=== PATIENT | male | born 1990 | race African-American/Black ===

== ENCOUNTER 2017-10-17 10:03 | Emergency (ER) | payer SELFPAY ==
[2017-10-17 10:13] VITALS: BP 125/68
[2017-10-17] MEDS ORDERED: LORATADINE 10 MG TABLET PO ONE (10:46)
[2017-10-17] MEDS ORDERED: GUAIFENESIN 600 MG TABLET.SA PO ONE (10:46)
[2017-10-17] MEDS ORDERED: PSEUDOEPHEDRINE HCL 30 MG TABLET PO ONE (10:46)
[2017-10-17] MEDS ORDERED: DEXAMETHASONE 4 MG TABLET PO ONE (10:46)
[2017-10-17] MEDS ORDERED: IBUPROFEN 800 MG TABLET PO ONE (10:47)
--- NOTE | 2017-10-17 10:49 | ER Document Report ---
HPI - HPI Patient complains to provider of: Cough cold congestion sore throat painful to swallow Onset: Other - 2-3 days Onset/Duration: Gradual Quality of pain: Achy Severity: Moderate Pain Level: 3 Associated Symptoms: Body/muscle aches, Chills, Rhinnorhea, Sinus pain/drainage , Sore throat Exacerbated by: Denies Relieved by: Denies Similar symptoms previously: Yes Recently seen / treated by doctor: No - ROS ROS below otherwise negative: Yes - CONSTITUTIONAL Constitutional: REPORTS: Chills - EENT EENT: REPORTS: Sore Throat, Nasal Drainage-Purulent - NEURO Neurology: REPORTS: Headache - CARDIOVASCULAR Cardiovascular: DENIES: Chest pain - RESPIRATORY Respiratory: REPORTS: Coughing - GASTROINTESTINAL Gastrointestinal: DENIES: Abdominal Pain, Nausea, Patient vomiting, Diarrhea, Constipation, Black / Bloody Stools - URINARY Urinary: DENIES: Dysuria, Urgency, Frequency - MUSCULOSKELETAL Musculoskeletal: DENIES: Extremity pain - Body aches, Back Pain, Neck Pain, Swelling - DERM Skin Color: Normal Skin Problems: None Past Medical History - General Information source: Patient - Social History Smoking Status: Never Smoker Cigarette use (# per day): No Chew tobacco use (# tins/day): No Smoking Education Provided: No Frequency of alcohol use: None Drug Abuse: None Occupation: [employer] Lives with: Parents Family History: Reviewed & Not Pertinent Patient has suicidal ideation: No Patient has homicidal ideation: No - Past Medical History Cardiac Medical History: Reports: None Pulmonary Medical History: Reports: None EENT Medical History: Reports: None Neurological Medical History: Reports: None Endocrine Medical History: Reports: None Renal/ Medical History: Reports: None Malignancy Medical History: Reports None GI Medical History: Reports: None Musculoskeletal Medical History: Reports None Skin Medical History: Reports None Psychiatric Medical History: Reports: None Traumatic Medical History: Reports: None Infectious Medical History: Reports: None Surgical Hx: Negative - Immunizations Immunizations up to date: Yes Hx Diphtheria, Pertussis, Tetanus Vaccination: Yes Vertical Provider Document - CONSTITUTIONAL Agree With Documented VS: Yes Exam Limitations: No Limitations General Appearance: WD/WN, No Apparent Distress - INFECTION CONTROL TRAVEL OUTSIDE OF THE [place] IN LAST 30 DAYS: No - HEENT HEENT: Atraumatic, Normocephalic, PERRLA. negative: Normal ENT Exam Notes: Erythematous swollen nasal turbinates, with cobblestone pattern to the oropharynx, tonsil stones present, with sore throat. Patient is afebrile lungs clear to auscultation - NECK Neck: Normal Inspection, Supple - RESPIRATORY Respiratory: Breath Sounds Normal, No Respiratory Distress, Chest Non-Tender - CARDIOVASCULAR Cardiovascular: Regular Rate, Regular Rhythm, No Murmur - GI/ABDOMEN Gastrointestinal: Abdomen Soft, Abdomen Non-Tender, No Organomegaly, Normal Bowel Sounds - MUSCULOSKELETAL/EXTREMETIES Musculoskeletal/Extremeties: MAEW, FROM, Non-Tender - NEURO Level of Consciousness: Awake, Alert, Appropriate Motor/Sensory: No Motor Deficit, No Sensory Deficit, No Pronator Drift Deep Tendon Reflexes: 2+ - DERM Integumentary: Warm, Dry, No Rash Course - Vital Signs Vital signs: Temp Pulse Resp BP Pulse Ox 98.8 F 92 20 125/68 100 10/17/17 10:12 10/17/17 10:12 10/17/17 10:12 10/17/17 10:12 10/17/17 10:12 Discharge - Discharge Clinical Impression: Strep pharyngitis URI (upper respiratory infection) Qualifiers: URI type: unspecified URI Qualified Code(s): J06.9 - Acute upper respiratory infection, unspecified Condition: Stable Disposition: HOME, SELF-CARE Instructions: Family Physicians / Practices Additional Instructions: UPPER RESPIRATORY ILLNESS: You have a viral infection of the respiratory passages -- a "cold." This common infection causes nasal congestion, drainage, and often sore throat and cough. It is highly contagious. The disease usually lasts about 10 to 14 days. There is no "cure" for the viral infection -- it must run its course. If there is a complication, such as bacterial infection in the nose, sinuses, middle ear, or bronchial tubes, antibiotics may be required. The antibiotics won't affect the virus. Drink plenty of fluids. A humidifier may help. An expectorant medication or decongestant may make you more comfortable. Use acetaminophen or ibuprofen for fever or aches. See the doctor if fever persists over two days, if there is any significant worsening of your symptoms, or if you simply fail to improve as expected. STREP THROAT: Your sore throat is due to the streptococcus germ (strep throat). Strep throat usually makes you feel quite ill with fever and aches, headache, swollen sore throat, and tender bumps under the angles of the jaw. Strep throat requires antibiotic treatment. Although the sore throat may go away by itself, complications such as rheumatic fever, kidney disease, or throat abscess can occur. We usually prescribe antibiotics by mouth. Be sure to take the medicine until it's gone. If you stop early, the strep may come back. If you are vomiting, are severely ill, or can't remember to take pills, we can give you an antibiotic shot. Take acetaminophen or ibuprofen for pain and fever. Sip frequent clear liquids, or use popsicles or ice chips. Anesthetic sprays or lozenges may help. Make sure the air in the room is not too dry. Avoid using decongestants or antihistamines. Call the doctor if there is no improvement in three days, or if you have difficulty breathing, increasing throat pain, high fever, rash, or frequent vomiting. Penicillins The antibiotic you have received is a member of the penicillin family. This is a very useful class of antibiotics. The particular type of antibiotic chosen for you was determined by the nature of your problem. Penicillins are absorbed best when taken on an empty stomach, and should be taken either a half hour before or two hours after a meal. Some newer medicines of the penicillin class are better taken with food -- if this is the case, the pharmacist will label the medicine to alert you. Penicillins usually have no side effects. However, allergy to penicillins is common. If you have had an allergic reaction to any drug of the penicillin family, you should never take any other penicillin. Notify your doctor at once if you develop hives, itching, swelling, faintness, or shortness of breath. Less serious side effects can include nausea or diarrhea. STEROID MEDICATION: You have been given a medicine of the cortisone/steroid class. This medication is used to control inflammation or allergy. It is usually only given for a short period of time, until the acute process subsides. There are usually no side effects from short-term use of cortisone-like medications. Some persons feel an increased sense of well-being and are not sleepy at bedtime. Long-term use of cortisone medications is best avoided, unless required for a severe condition. If your condition does not remit, or relapses after the course of corticosteroid medication, you should consult your physician. DECONGESTANT MEDICATION: A decongestant medicine has been prescribed. Often this medicine is combined in the same tablet with an antihistamine or expectorant. This type of medicine is helpful in treating a bad cold or sinus condition, as well as in treatment of the nasal congestion of hay fever. It is not of much benefit for lung infections. Decongestant medicines are related to stimulants. They can cause an increase in blood pressure and heart rate. Persons with heart disease and high blood pressure should not take decongestants without discussing this with the physician. If you develop palpitations, chest pain, headache, or tremors, stop the medicine and consult your physician. COUGH-SUPPRESSANT & EXPECTORANT MEDICATION: You are to use a cough medication as needed for relief of symptoms. This medicine is a combination of an expectorant (to make the mucous thinner and more easily "coughed up") and a cough suppressant (to reduce the frequency of coughing). The cough-suppressant medicine is related to narcotics. You may experience mild nausea and sleepiness. Some patients who are very sensitive to narcotics may have stomach pain from this medicine. Taking the medicine with food reduces these side effects. Do not drive or work with machinery until you know how this medicine affects you. The expectorant should have no side effects. Iodine-containing expectorants (such as organidin) should not be taken by persons with active thyroid disease unless approved by your doctor. Call the doctor if you develop shortness of breath, hives, rash, itching, lightheadedness, or severe nausea and vomiting. Change your toothbrush daily and throw away the old toothbrush each day for the next 3 days this will reduce the spread of the strap and you do not want to reinfect herself. FOLLOW-UP CARE: If you have been referred to a physician for follow-up care, call the physician s office for an appointment as you were instructed or within the next two days. If you experience worsening or a significant change in your symptoms, notify the physician immediately or return to the Emergency Department at any time for re-evaluation. Forms: Return to Work Referrals: LOCALMD,NO [Primary Care Provider] - Follow up as needed
[2017-10-17] MEDS ORDERED: PENICILLIN G BENZATHINE 1.2 MILLION UNIT/2 ML DISP.SYRIN IM ONE (11:11)
== END 2017-10-17 11:23 | disposition home or self-care (01) ==
LOC: ER 10:03
DX: J02.0 Streptococcal pharyngitis (principal); R05 Cough; M79.1 Myalgia; J34.89 Other specified disorders of nose and nasal sinuses
CPT/HCPCS: 99283; 96372; 87880; J0561

== ENCOUNTER 2017-12-15 15:21 | Emergency (ER) | payer SELFPAY ==
[2017-12-15] MEDS ORDERED: CLINDAMYCIN 900 MG/D5W RTU 900 MG/50 ML RTUPB IV ONE (16:14)
[2017-12-15] MEDS ORDERED: MAG HYDROX/AL HYDROX/SIMETH SUSP 30 ML UDCUP PO ONE (16:15)
[2017-12-15] MEDS ORDERED: DEXAMETHASONE SOD PHOS INJ 10 MG/1 ML VIAL IV ONE (16:15)
--- NOTE | 2017-12-15 16:16 | ER Document Report ---
ED Oral Problem - General Chief Complaint: Mouth Injury Stated Complaint: TONGUE PAIN Time Seen by Provider: 12/15/17 16:12 Mode of Arrival: Ambulatory Information source: Patient Notes: Patient is a 27-year-old male comes emergency room complaining of his tongue swelling. Patient is having difficult time speaking because he is tongue is slightly swollen. Patient states that about a week ago he woke up with his tongue hurting and noticed a lesion on the left side of the tongue. It is gotten slightly bigger over the course of the time and he cannot stand the discomfort anymore. He denies known injury is not sure if he bit it in his sleep or how it started. He is not having any oral airway problems he is swallowing okay but it is hard for him to talk. He denies any other medical problems TRAVEL OUTSIDE OF THE [place] IN LAST 30 DAYS: No - HPI Patient complains to provider of: Other - Swollen tongue Onset: Last week Quality of pain: Throbbing, Other - A fullness Severity: Moderate Pain Level: 3 Associated symptoms: Difficulty speaking, Tongue swelling Worsened by: Other - Talking to movement of the tongue Relieved by: Nothing Similar symptoms previously: No Recently seen / treated by doctor/dentist: No - Related Data Allergies/Adverse Reactions: No Known Allergies Allergy (Verified 12/15/17 15:22) Past Medical History - General Information source: Patient - Social History Smoking Status: Never Smoker Cigarette use (# per day): No Chew tobacco use (# tins/day): No Smoking Education Provided: No Frequency of alcohol use: None Drug Abuse: None Family History: Reviewed & Not Pertinent Patient has suicidal ideation: No Patient has homicidal ideation: No Renal/ Medical History: Denies: Hx Peritoneal Dialysis - Immunizations Immunizations up to date: Yes Hx Diphtheria, Pertussis, Tetanus Vaccination: Yes Review of Systems - Review of Systems Constitutional: No symptoms reported EENT: Other - Swollen tongue Cardiovascular: No symptoms reported Respiratory: No symptoms reported Gastrointestinal: No symptoms reported Genitourinary: No symptoms reported Male Genitourinary: No symptoms reported Musculoskeletal: No symptoms reported Skin: No symptoms reported Hematologic/Lymphatic: No symptoms reported Neurological/Psychological: No symptoms reported -: Yes All other systems reviewed and negative Physical Exam - Vital signs Vitals: Temp Pulse Resp BP Pulse Ox 100.0 F 107 H 16 134/86 H 99 12/15/17 15:29 12/15/17 15:29 12/15/17 15:29 12/15/17 15:29 12/15/17 15:29 Interpretation: Hypertensive, Tachycardic - General General appearance: Alert Notes: She is a well-nourished well-developed 27-year-old male who is in no apparent distress but does appear uncomfortable with the situation. - HEENT Head: Normocephalic, Atraumatic, Other - Examination of patient's face shows no asymmetry. There is no signs of overt external swelling around the lips cheeks mandible. Eyes: Normal Conjunctiva: Normal Nasal: Normal Mouth/Lips: Normal Mucous membranes: Normal Pharynx: Other - Examination of patient's oral cavity shows that when we say swollen tongue it is not like an angioedema presentation. The left side of his tongue has a lesion that is approximately a centimeter in diameter and it has a firm base under it which is about a centimeter and a half. It is on the lateral side left side and it is irritated the area. That area one by one lesion makes his tongue feel more swollen than it is. There is no sign of obstruction of his airway and none of his swallowing mechanism. There is I do not believe any chance of the tongue becoming a instruction. The lesion itself looks like it is infected. Got an erythematous base to it and there is no fluctuance so I do not believe there is an abscess underneath. I believe it is inflamed tissue. I am guessing that he either bit the area and it healed over causing a formation of a small abscess which is now turned into a chronic abscess with a firm base. Or it was At Aphthcanus sore that became infected giving the same result.. No: Blood in hypopharynx, Erythema, Exudate, Peritonsillar abscess, Post nasal drainage, Retropharyngeal abscess, Tonsillar hypertrophy, Uvular edema, Potential airway comprom. Neck: Normal, Supple. No: Anterior cervical chain, Posterior cervical chain, Brudzinski, Carotid bruit, Kernig's, Lymphadenopathy, Meningismus, Neck mass, Shotty nodes, Subcutaneous emphysema, Thyroid nodule - Respiratory Respiratory status: No respiratory distress Chest status: Nontender Breath sounds: Normal. No: Rales, Rhonchi, Stridor, Wheezing Chest palpation: Normal - Cardiovascular Rhythm: Tachycardia Heart sounds: Normal auscultation Murmur: No - Neurological Neuro grossly intact: Yes Cognition: Normal Orientation: AAOx4 [place] Coma Scale Eye Opening: Spontaneous [place] Coma Scale Verbal: Oriented [place] Coma Scale Motor: Obeys Commands Nay Coma Scale Total: 15 Speech: Normal Course - Re-evaluation Re-evalutation: 12/15/17 17:54 I have given patient clindamycin 900 IV, I have given him 10 of Decadron, and I gave a dose of Magic mouthwash. Patient stated the Magic mouthwash did nothing. The area itself has not changed during his stay here. He still in somewhat discomfort for talking. Patient has had this going on for a week and I cannot fix it and 2 hours. I have informed him that I am putting him on steroids to try to reduce the inflammation and antibiotics to help with the infection. Patient's white count was normal his lactic acid was normal so I believe her kitchen and early. I am put him on clindamycin for the broad- spectrum coverage and I am going to leave him on a steroid taper for a few days. He will be discharged home. I have asked him to come back in 24 hours for a reevaluation. I really would like a 48 in order to get full coverage there so he will make that determination as the day comes to and and tomorrow. I have informed him I will be here through tomorrow night and I will be back on Sunday and Sunday. - Vital Signs Vital signs: Temp Pulse Resp BP Pulse Ox 100.0 F 107 H 16 134/86 H 99 12/15/17 15:29 12/15/17 15:29 12/15/17 15:29 12/15/17 15:29 12/15/17 15:29 - Laboratory Result Diagrams: 12/15/17 16:40 12/15/17 16:40 Laboratory results interpreted by me: 12/15/17 12/15/17 16:40 16:40 Seg Neutrophils % 80.8 H Lymphocytes % 11.6 L Direct Bilirubin 0.5 H Alkaline Phosphatase 131 H Total Protein 8.6 H Discharge - Discharge Clinical Impression: Cellulitis of tongue, Tongue infection Condition: Stable Disposition: HOME, SELF-CARE Instructions: Cellulitis ([facility]) Additional Instructions: Home and when she to use warm salt water swishes. Do this at least 3 or 4 times a day for the next 48 hours. Take the medication as directed. Continue with a soft diet as to what you can handle yourse As I have indicated this can be turned around in a couple of hours. Is going to take time for the antibiotics to work in time for the steroid to work. Highly suggest suggested reevaluation in 24-48 hours. For sure if it is getting worse in 24 hours or sooner and if it is getting better than 48 hours to take a look at it. My name is Serafin Rodgers physician assistant professor of spanish in the ER here. I work the 2 until 2 AM shift through tomorrow night I am off Sunday and back Sunday. It would be easier if you need to come back if you ask for me on those time periods since I know your story or if you like someone else that is no problem either. But I want to take another look at this to see how you are progressing. I am also writing you for some pain medication so you can rest a little bit. But the warm salt water swishes will be helpful. Prescriptions: Clindamycin HCl 300 mg PO QID #40 capsule Hydrocodone/Acetaminophen [Hydrocodon-Acetamin 7.5-325/15] 10 ml PO Q6H PRN # 120 ml PRN Reason: Prednisone [Sterapred Ds] 10 mg PO ASDIR PRN 6 Days #1 tab.ds.pk PRN Reason: Forms: Elevated Blood Pressure, Return to Work
[2017-12-15 16:58] LABS: ABSOLUTE LYMPHOCYTES (AUTO) 0.9 10^3/uL (0.5-4.7); ABSOLUTE MONOCYTES (AUTO) 0.6 10^3/uL (0.1-1.4); ABSOLUTE NEUT (AUTO) 6.5 10^3/uL (1.7-8.2); BASOPHILS % (AUTO) 0.4 % (0-2); EOSINOPHILS % (AUTO) 0.3 % (0-6); HEMATOCRIT 44.5 % (37.9-51.0); HEMOGLOBIN 14.8 g/dL (13.5-17.0); LYMPHOCYTES % (AUTO) 11.6 % (13-45); MEAN CORPUSCULAR HEMOGLOBIN 27.9 pg (27.0-33.4); MEAN CORPUSCULAR HGB CONC 33.3 g/dL (32.0-36.0); MEAN CORPUSCULAR VOLUME 84 fl (80-97); MONOCYTES % (AUTO) 6.9 % (3-13); PLATELET COUNT 265 10^3/uL (150-450); RED BLOOD COUNT 5.32 10^6/uL (4.35-5.55); RED CELL DISTRIBUTION WIDTH 12.8 % (11.5-14.0); SEGMENTED NEUTROPHILS % (AUTO) 80.8 % (42-78); TOTAL CELLS COUNTED % (AUTO) 100 %
[2017-12-15 17:22] LABS: ALANINE AMINOTRANSFERASE 40 U/L (21-72); ALBUMIN 4.8 g/dL (3.5-5.0); ALKALINE PHOSPHATASE 131 U/L (38-126); ANION GAP 12 (5-19); ASPARTATE AMINO TRANSFERASE 21 U/L (17-59); BILIRUBIN,DIRECT 0.5 mg/dL (0.0-0.4); BLOOD UREA NITROGEN 10 mg/dL (7-20); CALCIUM 9.8 mg/dL (8.4-10.2); CARBON DIOXIDE 26 mmol/L (22-30); CHLORIDE 100 mmol/L (98-107); GLUCOSE 107 mg/dL (75-110); POTASSIUM 4.4 mmol/L (3.6-5.0); SODIUM 138.4 mmol/L (137-145); TOTAL PROTEIN 8.6 g/dL (6.3-8.2)
[2017-12-15 17:50] VITALS: BP 129/87
== END 2017-12-15 18:00 | disposition home or self-care (01) ==
LOC: ER 15:21
DX: K12.2 Cellulitis and abscess of mouth (principal); K14.0 Glossitis
CPT/HCPCS: 99283; 96375; 96365; 36415; 87040; 85025; 80053; 83605; J1100